=== PATIENT | female | born 1945 | race Caucasian/White ===

== ENCOUNTER 2018-03-13 15:35 | Emergency (ER) | payer OTHER, BC ==
--- NOTE | 2018-03-13 15:46 | PDOC ---
History of Present Illness - General History Source: Patient Exam Limitations: No Limitations <Glenis De Los Santos - Last Filed: 03/13/18 16:24> - History of Present Illness Initial Comments: 03/13/18 16:34 The patient is a 73 year old female, with a significant PMH of HTN, anxiety who presents to the emergency department via walk-in with pruritic erythematous sensation on face s/p receiving Clindamycin antibiotics at the dentist Dr. Charles approx 4 hours ago. The patient states she saw her dentist Dr Charles at 12 pm this afternoon for a dental implant removal and received Clindamycin abx around 12:15 pm. The patient states following receiving the antibiotics she began to feel a pruritic erythematous sensation on face. The patient denies any sore throat, throat closing sensation, voice changes, respiratory difficulty, wheezing, nausea or vomit. The patient denies chest pain, shortness of breath, headache and dizziness. Denies fever, chills, diarrhea and constipation. Denies dysuria, frequency, urgency and hematuria. Allergies: clindamycin, penicillins, sulfa (sulfonamide antibiotics) Past surgical history: Ovaries removal Social history: No reported Dentist: Dr Charles [phone] <Oneal Stafford - Last Filed: 03/13/18 16:34> - General Chief Complaint: Allergic Reaction Stated Complaint: ALLERGIC REACTION TO CLINDAMYCIN Time Seen by Provider: 03/13/18 15:46 Past History <Glenis De Los Santos - Last Filed: 03/13/18 16:24> <Oneal Stafford - Last Filed: 03/13/18 16:34> - Past Medical History Allergies/Adverse Reactions: Allergies Allergy/AdvReac Type Severity Reaction Status Date / Time clindamycin Allergy Mild Itching Verified 03/13/18 15:47 Penicillins Allergy Unknown Verified 03/13/18 15:47 Sulfa (Sulfonamide Allergy Unknown Verified 03/13/18 15:47 Antibiotics) Home Medications: Ambulatory Orders Azithromycin [Zithromax 250mg Tablets -] 250 mg PO UTDICT #6 tab 03/13/18 Cholecalciferol (Vitamin D3) [Vitamin D] 2,500 unit PO DAILY 03/13/18 Fenofibrate Nanocrystallized [Fenofibrate] 145 mg PO DAILY 03/13/18 Lisinopril 5 mg PO DAILY 03/13/18 Review of Systems - Review of Systems Comments:: 03/13/18 16:34 GENERAL/CONSTITUTIONAL: No fever or chills. No weakness. HEAD, EYES, EARS, NOSE AND THROAT: No change in vision. No ear pain or discharge. No sore throat. CARDIOVASCULAR: No chest pain or shortness of breath. RESPIRATORY: No cough, wheezing, or hemoptysis. GASTROINTESTINAL: No nausea, vomiting, diarrhea or constipation. GENITOURINARY: No dysuria, frequency, or change in urination. MUSCULOSKELETAL: No joint or muscle swelling or pain. No neck or back pain. SKIN: No rash NEUROLOGIC: No headache, vertigo, loss of consciousness, or change in strength/ sensation. ENDOCRINE: No increased thirst. No abnormal weight change. HEMATOLOGIC/LYMPHATIC: No anemia, easy bleeding, or history of blood clots. ALLERGIC/IMMUNOLOGIC: (+) Pruritic erythematous sensation on face. <Oneal Stafford - Last Filed: 03/13/18 16:34> *Physical Exam - Vital Signs Last Vital Signs Temp Pulse Resp BP Pulse Ox 99.0 F 58 L 16 126/91 98 03/13/18 15:46 03/13/18 15:46 03/13/18 15:46 03/13/18 15:46 03/13/18 15:46 - Physical Exam Comments: 03/13/18 16:34 GENERAL: Awake, alert, and fully oriented, in no acute distress HEAD: No signs of trauma EYES: PERRLA, EOMI, sclera anicteric, conjunctiva clear ENT: Auricles normal inspection, hearing grossly normal, nares patent, oropharynx clear without exudates. Moist mucosa. Uvula midline, non erythematous. NECK: Normal ROM, supple, no lymphadenopathy, JVD, or masses LUNGS: Breath sounds equal, clear to auscultation bilaterally. No wheezes, and no crackles HEART: Regular rate and rhythm, normal S1 and S2, no murmurs, rubs or gallops ABDOMEN: Soft, nontender, normoactive bowel sounds. No guarding, no rebound. No masses EXTREMITIES: Normal range of motion, no edema. No clubbing or cyanosis. No cords, erythema, or tenderness NEUROLOGICAL: Cranial nerves II through XII grossly intact. Normal speech, normal gait SKIN: Warm, Dry, normal turgor, no rashes or lesions noted. <Oneal Stafford - Last Filed: 03/13/18 16:34> ED Treatment Course - Medications Given in the ED: ED Medications Discontinued Medications Generic Name Dose Route Start Last Admin Trade Name Lety PRN Reason Stop Dose Admin Diphenhydramine HCl 50 mg 03/13/18 15:57 03/13/18 16:08 Benadryl - PO 03/13/18 15:58 50 mg ONCE ONE Administration <Oneal Stafford - Last Filed: 03/13/18 16:34> Medical Decision Making - Medical Decision Making 03/13/18 15:57 73 yo F who presents with concern for allergic reaction She is s/p dental surgery today She was given clindmycin After this she noted pruritis and facial erythema No difficulty swallowing, no wheezing No drooling No prior allergic reaction to clindamycin No nausea or vomiting Uvual midline right mandibular surgical site noted RRR CTA bilateraly No urticarial lesions noted Will give Doxy (pt has had this in the past with no reaction) Call placed to pt Dentist to inform them of this reaction 03/13/18 16:10 <Glenis De Los Santos - Last Filed: 03/13/18 16:24> - Medical Decision Making 03/13/18 16:[address] Charles [phone]. Case discussed. <Oneal Stafford - Last Filed: 03/13/18 16:34> *DC/Admit/Observation/Transfer - Discharge Dispostion Decision to Admit order: No <Glenis De Los Santos - Last Filed: 03/13/18 16:24> - Attestations Scribe Attestion: 03/13/18 16:34 Documentation prepared by Oneal Stafford, acting as medical device for Glenis De Los Santos MD. <Oneal Stafford - Last Filed: 03/13/18 16:34> Diagnosis at time of Disposition: Allergic reaction caused by a drug Qualifiers: Encounter type: initial encounter Qualified Code(s): T78.40XA - Allergy, unspecified, initial encounter - Discharge Dispostion Disposition: HOME Condition at time of disposition: Stable - Prescriptions Prescriptions: Azithromycin [Zithromax 250mg Tablets -] 250 mg PO UTDICT #6 tab - Patient Instructions Printed Discharge Instructions: DI for Adverse Drug Reaction -- Allergic Additional Instructions: Ms Duval, Thank you for coming in to the ER today Please return to the ER IMMEDIATELY for evaluation if you have any new or worsening symptoms DO NOT CONTINUE TO TAKE THE CLINDAMYCIN I have confirmed with your Dentist that you can take Azithromycin You can take Benadryl 25 mg every 8 hours to prevent worsening of this reaction for 1 day After that, you can take benadry every 8 hours ONLY NEEDED for itching Please follow up with your primary care physician within 2-3 days
[2018-03-13] MEDS ORDERED: diphenhydrAMINE HCL 25 MG CAPSULE (FP) PO ONE (15:57)
[2018-03-13 16:06] VITALS: BP 126/91; PULSE 58; TEMP 99; BMI 24.7
[2018-03-13] MEDS ORDERED: diphenhydrAMINE HCL 50 MG CAPSULE ONE (16:06)
== END 2018-03-13 16:36 | disposition home or self-care (01) ==
LOC: FER 15:35
DX: T78.40XA Allergy, unspecified, initial encounter (principal); I10 Essential (primary) hypertension; F41.9 Anxiety disorder, unspecified
CPT/HCPCS: 99282-25

== ENCOUNTER 2019-04-02 21:08 | Emergency (ER) | payer OTHER, BC ==
[2019-04-02 21:24] VITALS: BP 159/66; PULSE 58; TEMP 98.3; BMI 23.8
[2019-04-02] MEDS ORDERED: diphenhydrAMINE HCL 50 MG CAPSULE PO ONE (23:15)
[2019-04-02] MEDS ORDERED: diphenhydrAMINE HCL 50 MG CAPSULE ONE (23:17)
--- NOTE | 2019-04-03 07:18 | PDOC ---
Documentation entered by Flaco Soto SCRIBE, acting as scribe for Aman Small MD. Aman Small MD: This documentation has been prepared by the Charles hook Aiswarya, SCRIBE, under my direction and personally reviewed by me in its entirety. I confirm that the documentation accurately reflects all work, treatment, procedures, and medical decision making performed by me. History of Present Illness - General Chief Complaint: Allergic Reaction Stated Complaint: FACIAL REDNESS History Source: Patient Exam Limitations: No Limitations - History of Present Illness Initial Comments: 04/02/19 23:28 The patient is a 74 year old female, with a significant PMH of HTN and HDL, who presents to the emergency department with complaints of erythema and pruritus after taking prescribed antibiotics today. Patient states she had tooth extraction done a few days ago and was prescribed avelox. Patient reports after taking medications she felt swollen and erythematous around her cheeks and chest. Upon arrival to the ER, patients symptoms resolved. The patient denies chest pain, shortness of breath, headache and dizziness. Denies fever, chills, nausea, vomit, Allergies: clindamycin, penicillins, sulfa Past surgical history: None reported Social history: None reported PCP: None reported Past History - Past Medical History Allergies/Adverse Reactions: Allergies Allergy/AdvReac Type Severity Reaction Status Date / Time clindamycin Allergy Mild Itching Verified 03/13/18 15:47 Penicillins Allergy Unknown Verified 03/13/18 15:47 Sulfa (Sulfonamide Allergy Unknown Verified 03/13/18 15:47 Antibiotics) Home Medications: Ambulatory Orders Lisinopril 5 mg PO DAILY 03/13/18 Atorvastatin Ca [Lipitor] 10 mg PO HS 04/02/19 Azithromycin 250 mg PO DAILY 5 Days #6 tablet 04/02/19 Ibuprofen [Advil -] 200 mg PO PRN PRN 04/02/19 Moxifloxacin HCl 400 mg PO DAILY 04/02/19 COPD: No HTN: Yes Hypercholesterolemia: Yes - Suicide/Smoking/Psychosocial Hx Smoking History: Never smoked Hx Alcohol Use: Yes (OCASSIONAL) Drug/Substance Use Hx: No Substance Use Type: None Review of Systems - Review of Systems Able to Perform ROS?: Yes Comments:: 04/02/19 23:29 GENERAL/CONSTITUTIONAL: No fever or chills. No weakness. HEAD, EYES, EARS, NOSE AND THROAT: No change in vision. No ear pain or discharge. No sore throat. CARDIOVASCULAR: No chest pain or shortness of breath. RESPIRATORY: No cough, wheezing, or hemoptysis. GASTROINTESTINAL: No nausea, vomiting, diarrhea or constipation. GENITOURINARY: No dysuria, frequency, or change in urination. MUSCULOSKELETAL: No joint or muscle swelling or pain. No neck or back pain. SKIN: No rash NEUROLOGIC: No headache, vertigo, loss of consciousness, or change in strength/ sensation. ENDOCRINE: No increased thirst. No abnormal weight change. HEMATOLOGIC/LYMPHATIC: No anemia, easy bleeding, or history of blood clots. ALLERGIC/IMMUNOLOGIC: No hives or skin allergy. *Physical Exam - Vital Signs Last Vital Signs Temp Pulse Resp BP Pulse Ox 98.3 F 58 L 16 159/66 96 04/02/19 21:12 04/02/19 21:12 04/02/19 21:12 04/02/19 21:12 04/02/19 21:12 - Physical Exam Comments: 04/02/19 23:30 GENERAL: Awake, alert, and fully oriented, in no acute distress ENT:Moist mucosa NECK: Normal ROM, supple, no lymphadenopathy, JVD, or masses LUNGS: Breath sounds equal, clear to auscultation bilaterally. No wheezes, and no crackles HEART: Regular rate and rhythm, normal S1 and S2, no murmurs, rubs or gallops NEUROLOGICAL: Cranial nerves II through XII grossly intact. Normal speech. SKIN:+trace erythema upper anterior chest Medical Decision Making - Medical Decision Making 04/03/19 07:18 ? medication reaction benadryl change abx allergy fu *DC/Admit/Observation/Transfer Diagnosis at time of Disposition: Allergic Qualifiers: Encounter type: initial encounter Qualified Code(s): T78.40XA - Allergy, unspecified, initial encounter - Discharge Dispostion Disposition: HOME Condition at time of disposition: Stable - Prescriptions Prescriptions: Azithromycin 250 mg PO DAILY 5 Days #6 tablet - Referrals - Patient Instructions Printed Discharge Instructions: DI for Adverse Drug Reaction -- Allergic - Post Discharge Activity
== END 2019-04-02 23:15 | disposition home or self-care (01) ==
LOC: FER 21:08
DX: T78.40XA Allergy, unspecified, initial encounter (principal); I10 Essential (primary) hypertension; E78.00 Pure hypercholesterolemia, unspecified
CPT/HCPCS: 99282-25